=== PATIENT | female | born 1995 | race Caucasian/White ===

== ENCOUNTER 2020-06-29 00:01 | Inpatient (IN) | payer BC, OTHER ==
[2020-06-30 01:32] VITALS: BMI 36.0
[2020-06-30] MEDS ORDERED: Ondansetron PF 4 MG/2 ML Vial IVP PRN ×2 (01:32→10:22)
[2020-06-30] MEDS ORDERED: Zolpidem Tartrate 5 MG TAB PO PRN (01:32)
[2020-06-30] MEDS ORDERED: hydrALAZINE 20 MG/ML VIAL SLOW IVP PRN (01:32)
[2020-06-30] MEDS ORDERED: Diphenoxylate HCl/Atropine Tablet PO PRN ×2 (01:32)
[2020-06-30] MEDS ORDERED: Promethazine HCl 25 MG/ML VIAL IM PRN ×2 (01:32→10:22)
[2020-06-30] MEDS ORDERED: Ibuprofen 800 MG TAB PO PRN (01:32)
[2020-06-30] MEDS ORDERED: HYDROcodone/Acetaminophen 5/325 mg Tablet PO PRN ×2 (01:32)
[2020-06-30] MEDS ORDERED: Butorphanol Tartrate 1 MG/ML VIAL SLOW IVP PRN (01:32)
[2020-06-30] MEDS ORDERED: Lidocaine 1% (PF) 30 ML VIAL SC PRN (01:32)
[2020-06-30] MEDS ORDERED: Misoprostol 200 MCG TAB PR PRN (01:32)
[2020-06-30] MEDS ORDERED: NS / Oxytocin 40 units/1000ml 1,000 ML IV PRN (01:32)
[2020-06-30] MEDS ORDERED: Acetaminophen 500 MG TAB PO PRN (01:32)
[2020-06-30] MEDS ORDERED: NS w/ Oxytocin 10 units 500 ML IV SCH (01:32)
[2020-06-30] MEDS: Misoprostol 100 MCG TAB VAG SCH ×5 (02:09→20:11)
[2020-06-30 02:23] LABS: Hemoglobin 12.2 g/dL (12.0-16.0); Mean Corpuscular HGB CONC 33.9 g/dL (32.0-36.0); Mean Corpuscular Hemoglobin 29.6 pg (27.0-31.0); Mean Corpuscular Volume 87.4 fL (78.0-98.0); Platelet Count 282 thou/uL (130-400); RBC Distribution Width 15.2 % (11.5-14.5); Red Blood Cell (RBC) Count 4.11 mill/uL (4.20-5.40); White Blood Cell (WBC) Count 8.4 thou/uL (4.8-10.8)
[2020-06-30 03:26] LABS: HBSAg Index 0.18 S/CO (0-0.99); Hep B Surf Ag Non-Reactive S/CO (NonReactive)
[2020-06-30 04:42] LABS: Syphilis Antibody Nonreactive (Nonreactive); Syphilis Antibody Index 0.04 S/CO (<1.00 Non-Reactive)
[2020-06-30] MEDS: NS w/ Oxytocin 10 units 500 ML IV SCH ×2 (06:27→20:12)
[2020-06-30] MEDS ORDERED: Fentanyl 4 mcg/Bup 0.1% Cadd 0 ML ONE (08:40)
[2020-06-30] MEDS: Lactated Ringer's 1,000 ML IV SCH ×3 (09:24→20:11)
[2020-06-30] MEDS ORDERED: EPHEDRINE 25 MG/5 ML SYRINGE SLOW IVP PRN (10:22)
[2020-06-30] MEDS ORDERED: Lactated Ringer's 500 ML IV PRN (10:22)
[2020-06-30] MEDS ORDERED: diphenhydrAMINE 50 MG/ML VIAL IVP PRN (10:22)
[2020-06-30] MEDS ORDERED: Naloxone HCl 0.4 mg/ml Vial IVP PRN ×2 (10:22)
[2020-06-30] MEDS ORDERED: Fentanyl 4 mcg/Bupivacaine 0.1% Cassette 100 ML EPIDURAL SCH (10:30)
[2020-06-30] MEDS ORDERED: Communication Order-Pharmacy FS SCH (10:30)
[2020-06-30] MEDS: Acetaminophen 325 MG TAB PO PRN ×2 (10:57→19:32)
[2020-06-30] MEDS ORDERED: Lidocaine 2% MPF 10 ML AMP (For Epidural Use) ONE (11:06)
[2020-06-30] MEDS ORDERED: Fentanyl 4 mcg/Bup 0.1% Cadd 100 ML ONE (15:44)
[2020-06-30] MEDS: Dextrose 5%-Lactated Ringers 1,000 ML IV SCH ×3 (18:38→20:12)
[2020-06-30] MEDS: Docusate 100 MG CAP PO PRN (19:31)
[2020-07-01] MEDS: Acetaminophen 325 MG TAB PO PRN (04:36)
[2020-07-01] MEDS ORDERED: HYDROcodone/Acetaminophen 5/325 mg Tablet PO PRN ×2 (08:49)
[2020-07-01] MEDS ORDERED: Ibuprofen 800 MG TAB PO SCH (09:00)
[2020-07-01] MEDS: Misoprostol 100 MCG TAB VAG SCH ×3 (09:22→21:08)
[2020-07-01] MEDS: Docusate 100 MG CAP PO PRN ×2 (09:47→21:09)
[2020-07-01] MEDS: Prenatal Vitamin 1 TAB PO SCH (09:47)
[2020-07-01] MEDS: Dextrose 5%-Lactated Ringers 1,000 ML IV SCH ×3 (10:08→23:59)
[2020-07-01] MEDS: Lactated Ringer's 1,000 ML IV SCH ×3 (10:08→23:59)
[2020-07-01] MEDS: Ibuprofen 800 MG TAB PO SCH ×2 (15:02→21:10)
[2020-07-01] MEDS ORDERED: Benzocaine-Menthol 82.5 ML CAN TOP PRN (19:55)
[2020-07-01] MEDS ORDERED: Witch Hazel-Glycerin 1 EACH JAR TOP PRN (19:55)
[2020-07-01] MEDS ORDERED: Lanolin Ointment 7 GM TUBE TOP PRN (21:44)
[2020-07-01] MEDS: NS w/ Oxytocin 10 units 500 ML IV SCH (23:59)
[2020-07-02] MEDS: Ibuprofen 800 MG TAB PO SCH ×2 (06:03→06:36)
[2020-07-02] MEDS: Prenatal Vitamin 1 TAB PO SCH (08:46)
[2020-07-02] MEDS: Misoprostol 100 MCG TAB VAG SCH (08:46)
[2020-07-02] MEDS: Acetaminophen 325 MG TAB PO PRN (08:49)
[2020-07-02 09:11] VITALS: BP 130/76; TEMP 98.4
== END 2020-07-02 12:24 | disposition home or self-care (01) | DRG 807 ==
LOC: EDSTATUS 23:00 → L&D 06-30 00:59 → 3SW 06-30 18:36
PROVIDERS: ADMIT Obstetrics & Gynecology; ATTEND Obstetrics & Gynecology
PROC: 10E0XZZ Delivery of Products of Conception, External Approach (ICD-10-PCS; principal; 2020-06-30)
PROC: 10H07YZ Insertion of Other Device into Products of Conception, Via Natural or Artificial Opening (ICD-10-PCS; 2020-06-30)
PROC: 10907ZC Drainage of Amniotic Fluid, Therapeutic from Products of Conception, Via Natural or Artificial Opening (ICD-10-PCS; 2020-06-30)
PROC: 3E0P7VZ Introduction of Hormone into Female Reproductive, Via Natural or Artificial Opening (ICD-10-PCS; 2020-06-30)
PROC: 3E033VJ Introduction of Other Hormone into Peripheral Vein, Percutaneous Approach (ICD-10-PCS; 2020-06-30)
DX: O80 Encounter for full-term uncomplicated delivery (principal); Z37.0 Single live birth; Z3A.39 39 weeks gestation of pregnancy; Z20.828 Contact with and (suspected) exposure to other viral communicable diseases; Z88.0 Allergy status to penicillin
CPT/HCPCS: 36415; 51702; 85027; 85461; 86780; 86850; 86870; 86900; 86901; 87340; 90384; 96372; J0595; J2001; J2550; J2590

== ENCOUNTER 2022-06-23 09:49 | Outpatient (CLI) | payer OTHER | END 2022-06-23 09:50 | disposition home or self-care (01) | LOC: BICULT 09:49 | PROVIDERS: ATTEND Obstetrics & Gynecology | DX: N64.4 Mastodynia (principal) ==